=== PATIENT | female | born 1960 | race African-American/Black ===

== ENCOUNTER 2016-09-24 08:07 | Emergency (ER) | payer OTHER ==
[~2016-09-24] VITALS: Ht 165.1 cm; Wt 73.9 kg
[~2016-09-24 08:07] MED LIST: ACCURETIC 10-11 EACH PO; AMITRIPTYLINE H50 M2 PO; AMOXICILLIN; ASPIRIN EC325 M1 PO; BYSTOLIC10 MG PO; CATAPRES; CRESTOR10 MG PO; EFFIENT10 MG PO; FLAGYL500 MG PO; FLEXERIL PO; GLIPIZIDE 10 MG10 MG PO; GLIPIZIDE XL10 MG PO; GLUCOPHAGE1000 MG PO; JANUMET XR 50-1 EAC1 PO; LANTUS SUBQ; LISINOPRIL; LISINOPRIL-HCT1 EAC1 PO; NAPROSYN500 MG PO; NEURONTIN 300300 M1 PO; NEXIUM40 MG PO; NITROSTAT0.4 MG SL; NORCO 5-325 TA1 EACH PO; NORFLEX100 MG PO; NORVASC10 MG PO; PERCOCET 5-3251 EACH PO; PROZAC; TOPROL XL100 MG PO; VITAMIN D1000 UNI1 PO; ZANTAC 150MG T150 MG PO; ZOLOFT 50 MG TA50 M1 PO
[2016-09-24] MEDS ORDERED: NORCO 5-325 TA1 EACH PO (09:00)
[2016-09-24 09:10] VITALS: BP 142/88
== END 2016-09-24 09:11 | disposition home or self-care (01) ==
LOC: ER 08:07
DX: S16.1XXA Strain of muscle, fascia and tendon at neck level, initial encounter (principal); S70.01XA Contusion of right hip, initial encounter; S40.011A Contusion of right shoulder, initial encounter; M25.551 Pain in right hip; M25.511 Pain in right shoulder; E11.9 Type 2 diabetes mellitus without complications; I10 Essential (primary) hypertension; E78.00 Pure hypercholesterolemia, unspecified; Z95.9 Presence of cardiac and vascular implant and graft, unspecified; Z98.890 Other specified postprocedural states; V49.9XXA Car occupant (driver) (passenger) injured in unspecified traffic accident, initial encounter; Y93.9 Activity, unspecified; Y92.410 Unspecified street and highway as the place of occurrence of the external cause; Y99.9 Unspecified external cause status

== ENCOUNTER 2020-03-29 21:12 | Emergency (ER) | payer OTHER ==
[~2020-03-29] VITALS: Ht 165.1 cm; Wt 70.3 kg
[2020-03-29] MEDS ORDERED: ASA81BEC PO (21:20)
[2020-03-29] MEDS ORDERED: PROTONIX40 M2 PO (21:21)
[2020-03-29] MEDS ORDERED: COZAAR 25 MG TA25 M1 PO (21:22)
[2020-03-29] MEDS ORDERED: HYDROCHLOROTHIA25 M2 PO (21:23)
[2020-03-29] MEDS ORDERED: LIPITOR10 MG PO (21:25)
[2020-03-29 21:55] LABS: URINE BILIRUBIN NEGATIVE (Negative); URINE BLOOD NEGATIVE (Negative); URINE CLARITY CLEAR; URINE COLOR YELLOW; URINE GLUCOSE-RANDOM* NEGATIVE (Negative); URINE KETONES NEGATIVE (Negative); URINE LEUKOCYTES-REFLEX NEGATIVE (Negative); URINE NITRITE-REFLEX NEGATIVE (Negative); URINE PROTEIN (DIPSTICK) 1+ (Negative); URINE UROBILINOGEN >= 8.0 E.U./dl (0.2-1.0)
[2020-03-29 22:24] LABS: BACTERIA-REFLEX 1-9 Few /HPF (None Seen); CASTS None Seen /LPF (None Seen); CRYSTALS None Seen /LPF (None Seen); SQUAMOUS 4-10 Moderate /LPF (0-3); URINE RBC None Seen /HPF (0-2); URINE WBC-REFLEX 0-5 Rare /HPF (0-5); YEAST-REFLEX Present (None Seen)
[2020-03-29 23:57] LABS: ABSOLUTE NEUTROPHILS 13.7 thou/uL (1.4-8.2); BASOPHILS 0.6 % (0.0-2.0); EOSINOPHILS 1.6 % (0.0-3.0); HEMATOCRIT 37.1 % (37.0-47.0); HEMOGLOBIN 12.5 gm/dL (12.0-15.0); MCH 29.1 pg (26.0-34.0); MCHC 33.6 g/dL (28.0-37.0); MCV 86.5 fL (80.0-100.0); MONOCYTES 8.7 % (1.0-8.0); PLATELET COUNT 297 thou/uL (150-400); POLYS 75.1 % (36.0-66.0); RDW 14.4 % (10.5-14.5); WBC 18.3 thou/uL (4.0-11.0)
[2020-03-29 23:58] LABS: CALCIUM 9.8 mg/dL (8.5-10.1); CREATININE 1.5 mg/dL (0.6-1.0); POTASSIUM 3.3 mmol/L (3.5-5.1)
[2020-03-30 00:05] LABS: ALBUMIN 2.5 g/dL (3.4-5.0); TOTAL BILIRUBIN 1.8 mg/dL (0.2-1.0); TOTAL PROTEIN 8.3 g/dL (6.4-8.2)
[2020-03-30] MEDS ORDERED: ULTRAM 50MG TAB50 MG PO (01:53)
[2020-03-30 02:12] VITALS: BP 132/79
== END 2020-03-30 02:13 | disposition home or self-care (01) ==
LOC: ER 21:12
PROVIDERS: Emergency Medicine
DX: N63.20 Unspecified lump in the left breast, unspecified quadrant (principal); I10 Essential (primary) hypertension; E11.9 Type 2 diabetes mellitus without complications; E78.00 Pure hypercholesterolemia, unspecified; G43.909 Migraine, unspecified, not intractable, without status migrainosus; Z86.2 Personal history of diseases of the blood and blood-forming organs and certain disorders involving the immune mechanism; Z79.4 Long term (current) use of insulin; Z79.899 Other long term (current) drug therapy

== ENCOUNTER 2020-04-23 17:35 | Inpatient (IN) | payer OTHER ==
[~2020-04-23] VITALS: Ht 165.1 cm; Wt 97.7 kg
[2020-04-23 17:35] VITALS: BP 117/64
[~2020-04-23 17:35] MED LIST changes: +ASA81BEC PO; +COZAAR 25 MG TA25 M1 PO; +HYDROCHLOROTHIA25 M2 PO; +LIPITOR10 MG PO; +PROTONIX40 M2 PO; +ULTRAM 50MG TAB50 MG PO
[2020-04-23 18:47] LABS: HEMATOCRIT 23.8 % (37.0-47.0); HEMOGLOBIN 7.8 gm/dL (12.0-15.0); MCH 27.6 pg (26.0-34.0); MCHC 32.7 g/dL (28.0-37.0); MCV 84.3 fL (80.0-100.0); PLATELET COUNT 103 thou/uL (150-400); RBC 2.82 mil/uL (4.20-5.00); RDW 20.1 % (10.5-14.5); WBC 27.2 thou/uL (4.0-11.0)
[2020-04-23 19:01] LABS: ANION GAP 13 mmol/L (7-16); BUN 53 mg/dL (7-18); CALCIUM 8.7 mg/dL (8.5-10.1); CHLORIDE 108 mmol/L (98-107); CO2 21 mmol/L (21-32); CREATININE 1.8 mg/dL (0.6-1.0); GLUCOSE 181 mg/dL (74-106); POTASSIUM 3.7 mmol/L (3.5-5.1); SODIUM 142 mmol/L (136-145)
[2020-04-23 19:11] LABS: ALBUMIN 1.9 g/dL (3.4-5.0); SGOT 180 U/L (15-37); SGPT 44 U/L (30-65); TOTAL BILIRUBIN 6.6 mg/dL (0.2-1.0); TOTAL PROTEIN 6.3 g/dL (6.4-8.2); TROPONIN-I <0.06 ng/mL (<0.06)
[2020-04-23 20:52] LABS: ABSOLUTE NEUTROPHILS 21.8 thou/uL (1.4-8.2); METAMYELOCYTES 2 %; NUCLEATED RBCS 3 /100WBC
[2020-04-23 20:53] LABS: ANISOCYTOSIS 2+
[2020-04-23 21:06] LABS: INR 2.4; PROTIME 24.8 Seconds (9.3-11.4)
[2020-04-23 21:53] VITALS: BP 117/64
[2020-04-23 22:48] LABS: URINE BILIRUBIN 2+ (Negative); URINE BLOOD 3+ (Negative); URINE CLARITY SL CLOUDY; URINE COLOR YELLOW; URINE GLUCOSE-RANDOM* NEGATIVE (Negative); URINE KETONES TRACE (Negative); URINE LEUKOCYTES-REFLEX NEGATIVE (Negative); URINE NITRITE-REFLEX NEGATIVE (Negative); URINE PROTEIN (DIPSTICK) 2+ (Negative); URINE SPECIFIC GRAVITY 1.015 (1.005-1.035); URINE UROBILINOGEN 0.2 E.U./dl (0.2-1.0)
[2020-04-23 22:49] LABS: ICTOTEST (BILI CONFIRMATORY) Positive (Negative)
[2020-04-23 23:04] LABS: FINE GRANULAR CASTS 0-3 Few /LPF (None Seen); MUCUS 0-3 Light strn/LPF (None Seen); SQUAMOUS None Seen /LPF (0-3); URINE RBC 0-2 Rare /HPF (0-2); URINE WBC-REFLEX 0-5 Rare /HPF (0-5)
[2020-04-23 23:05] LABS: AMORPHOUS URATES Moderate /LPF (None Seen); BACTERIA-REFLEX 1-9 Few /HPF (None Seen); CRYSTALS None Seen /LPF (None Seen); YEAST-REFLEX Present (None Seen)
[2020-04-23 23:19] VITALS: BP 99/63
[2020-04-23 23:30] VITALS: BP 116/87
--- NOTE | 2020-04-24 01:46 | NUR ---
04/23/20 2330 PT TO FLOOR FROM ER FOLLOWING REPORT, BASELINE ADMISSION ASSESSMENT COMPLETED, WOUND TO LEFT BREAST FOUND, TO NIPPLE AREA, DRESSING REMOVED, WOUND CLEANSED WITH SALINE, PICTURE TAKEN, AND NEW DRESSING APPLIED PT STATES SHE HAD A BIOPSY DONE AT [place] 1 WEEK AGO. PT STATES SHE IS UNHAPPY WITH HER BED AND HER ROOM. RESP UNLABORED WITH WHEEZES TO BUL ON ASCULTATION. SCHUSTER CATH IN PLACE WITH ORANGE URINE, PT WITH YELLOW SCLERA BILAT AND EDEMA TO BOTTOM HALF OF BLE FROM THIGH TO ANKLE, WHICH PT STATES IS NEW TO HER. SCD'S IN PLACE AND FALL PRECAUTIONS IN PLACE
[2020-04-24 02:47] VITALS: BP 103/57
[2020-04-24 08:08] VITALS: BP 127/95
--- NOTE | 2020-04-24 10:48 | NUR ---
patient covid test resulted negative, paged dr. pearce to make aware. awaiting dr. pyle to round to make aware. for further orders
[2020-04-24 11:42] VITALS: BP 106/51
--- NOTE | 2020-04-24 11:59 | NUR ---
PATIENT COMPLAINING OF PAIN ALL OVER, PAGED DR. LITTLE FOR ORDERS FOR PAIN MEDS, AWAITING CALL BACK
--- NOTE | 2020-04-24 14:59 | NUR ---
ASSUMED PATIENT CARE THIS AM AT APPROXIMATELY 0700. PATIENT AWAKE AND ALERT, DISORIENTED TO TIME. ASSESSMENT/MEDS CHARTED. INTERMITTENT CONFUSION NOTED THROUGHOUT SHIFT. CALLED PATIENT SON DEQUAN TO UPDATE ON PATIENT CONDITION. ALL QUESTIONS ANSWERED AT THIS TIME. PATIENT HAS POOR APPETITE THIS SHIFT.
[2020-04-24 15:25] VITALS: BP 105/56
--- NOTE | 2020-04-24 15:38 | NUR ---
PATIENT REFUSING LABS X3 THIS SHIFT. SPOKE WITH PATIENT REGARDING GETTING LABS DRAWN THIS EVENING. IS AGREEABLE AT THIS TIME. LAB TO COME REDRAW
--- NOTE | 2020-04-24 15:44 | NUR ---
SPOKE WITH DR. CALDERON AT THIS TIME UPON ROUNDING. INFORMED OF NEGATIVE COVID RESULT, STATES TO OBTAIN ANOTHER COVID SWAB AND IF THAT ONE IS NEGATIVE CAN D/C ISOLATION.
[2020-04-24 17:03] LABS: INR 2.6; PROTIME 26.5 Seconds (9.3-11.4)
[2020-04-24 17:05] LABS: ALBUMIN 1.6 g/dL (3.4-5.0); DIRECT BILIRUBIN 5.2 mg/dL (<0.1-0.2); TOTAL BILIRUBIN 6.3 mg/dL (0.2-1.0); TOTAL PROTEIN 5.9 g/dL (6.4-8.2)
--- NOTE | 2020-04-24 19:29 | NUR ---
1900 ASSUMED CARE OF PT AFTER REPORT, 1914 BASELINE ASSESSMENT COMPLETED, PT IS INCREASINGLY SOA, NOW WITH TALKING. HR 120'S INCREASED FROM 110'S PREVIOS SHIFT. PT IS MORE CONFUSED AND IS ORIENTED ONLY TO PERSON AND PLACE, BUT IS AWAKE AND ALERT.OTHERWISE, URINE OUTPUT REMAINS ADEQUATE WILL MONITOR CLOSELY, PT IS EDEMETOUS ON THE DEPENDENT SIDE GENERALIZED.
[2020-04-24 19:32] VITALS: BP 111/58
[2020-04-25] VITALS (9 sets, daily range): BP systolic 101–124; BP diastolic 43–90
--- NOTE | 2020-04-25 08:08 | HC ---
[facility] [place] [address] CONSULTATION Name: GUERO GARLAND Room #: 355- ADM IN M.R.#: [id number] Admission: 04/23/20 Attend Phys: Artur Mcgovern MD Discharge: Date of : 64 Report #: [id number] THIS REPORT FOR: cc: EMMANUEL - No family physician/PCP EMMANUEL - No family physician/PCP Tray Santiago MD ~ CC: Artur Mcgovern MD [facility] physician/PCP [facility] Hematology-Oncology Cli HISTORY OF PRESENT ILLNESS: The patient is a 59-year-old female who was admitted yesterday to the hospital for mostly shortness of air. She had recently left earlier in the day from [facility] against medical advice. She gives about a 6-month history of a breast mass with nipple discharge, it would wax and wane. She had a CAT scan at [facility] in 03/2020 of the chest and abdomen that showed a large breast mass in the left, mediastinal and left axillary lymph nodes and innumerable liver masses. A biopsy on 04/06 showed metaplastic cancer, squamous predominance, triple negative with Ki-67 of 80%. Liver function was deteriorating rapidly and decided to start urgent chemotherapy. She received carboplatin and Taxol on a weekly basis beginning on 04/09. She reports that she thinks the mass was getting smaller and perhaps draining less. When she came in for second dose of chemotherapy at [facility] Hematology-Oncology clinic on 04/16, she was found to be tachycardic, hypotensive, febrile, hemoglobin was 6.3 and was neutropenic. She was admitted to the hospital and begun on broad-spectrum antibiotics. Blood cultures per the [facility] 04/23/2020 were negative growth to date, though urine culture did grow yeast and she was on nystatin or other antifungals. She also was thought to be encephalopathic ____ declined having an MRI once if not twice. It sounds like the patient become frustrated and wished to go seek care at another hospital, does left against medical advice. Today, the patient denies fevers, chills, nausea. She did have some queasiness earlier. She does have some discomfort in her bilateral upper thighs. She does have some discomfort and or or fullness type feeling. She does not really have pain. When asked about the left breast mass, she feels like it has been draining less and perhaps softer than it was prior to chemotherapy. 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 [facility] [address] [place] [address] CONSULTATION Name: GUERO GARLAND Room #: 355-P [place] IN M.R.#: [id number] Admission: 04/23/20 Attend Phys: Artur Mcgovern MD Discharge: Date of : 64 Report #: [id number] SOCIAL HISTORY: The patient had been working previous to admission. She is a nonsmoker, no alcohol. LABORATORY DATA: Lab review here shows a creatinine of 1.8, which is slightly higher than 1.6 at the outside hospital. AST of 180, little bit higher; lipase quite elevated at 4429; total bili 6.6, recently at [place] had been around 5.5 if I recall. Alkaline phosphatase 446, which is about the same elevation; ALT 44; albumin of 1.9. Ammonia level pending. Lactic acid was 2.6 earlier. INR here was 2.4, note that recently at outside hospital was 2.9. White count 27.2, outside hospital had been around 20,000, I believe; hemoglobin 6.8; platelets 103, they had been 110 there recently. Differential notable for 2 metamyelocytes. Note that she had 1 metamyelocyte at the outside hospital. UA positive for urate, yeast. MEDICATIONS: At this time include vancomycin 500 mg q. 12, lactulose 20 g daily, metronidazole IV push b.i.d., pantoprazole 40 mg daily, insulin on a sliding scale, Zosyn 3.375 grams IV q. 8, ipratropium and albuterol respiratory therapy, Zofran p.r.n. The patient I do not believe is currently on oxygen. PHYSICAL EXAMINATION: GENERAL: The patient appears her stated age. VITAL SIGNS: Height is 5 feet 5 inches, 152.4 cm, another place it is mentioned 165.1 cm. Weight appears to be either 156 pounds reported or currently measured 198 on measure. MOOD: The patient is alert and pleasant, though somewhat distracted in her thinking. NEUROLOGIC: Speech and thought pattern are mostly normal, though she is a little bit odd in her thinking and could be consistent with encephalopathy or anxiety or infection. LYMPH NODES: None definitely palpable in the neck, right axilla or groin. Maybe some lymph nodes in the left axilla. We will need to see what I think on further exams when the patient is more relaxed. BREASTS: Left breast does have dressing in place. There does appear to be some fullness. I examined through the bandage in place. ABDOMEN: Obese, maybe some slight organomegaly as far as the liver, though it is hard to tell. She is obese. EXTREMITIES: There does appear to be edema. Mild anasarca in both extremities including the thighs. SKIN: Appears to be intact. ASSESSMENT AND PLAN: 1. 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 By patient report, may have respond to first week of carboplatin and Taxol. If she recovers, we will have to decide whether to suggest retreatment with dose attenuation of the same agents or other therapy, which would be quite dangerous in this patient with liver dysfunction. Also could strongly consider palliative care with [facility] [address] [place] [address] CONSULTATION Name: GUERO GARLAND Room #: 355[facility] IN .R.#: [id number] Admission: 04/23/20 Attend Phys: Artur Mcgovern MD Discharge: Date of : 64 Report #: [id number] hospice. 2. Encephalopathy, elevated lactate. Worrisome for either widely metastatic cancer or perhaps a component of infection. Agree with cultures and antibiotics, which are in place. 3. Hypertension. Monitor. 4. Diabetes. Sliding scale insulin and meds per others. 5. Questionable history of cirrhosis. Ammonia level pending. 6. Anemia. Transfuse to keep hemoglobin above 7. 7. Mild thrombocytopenia 110. Continue monitoring. 8. Renal insufficiency, do suggest drugs. 9. Elevated lipase and liver functions. Defer to others. We will follow with you. <ELECTRONICALLY SIGNED> By: Tray Santiago MD 04/25/20807 5 Vineet Santiago MD /mohini
[2020-04-25 08:32] LABS: RBC 2.21 mil/uL (4.20-5.00)
[2020-04-25 08:34] LABS: MCH 27.9 pg (26.0-34.0); RDW 19.9 % (10.5-14.5); WBC 27.1 thou/uL (4.0-11.0)
[2020-04-25 08:43] LABS: CALCIUM 8.2 mg/dL (8.5-10.1); CREATININE 1.9 mg/dL (0.6-1.0); POTASSIUM 3.4 mmol/L (3.5-5.1)
[2020-04-25 09:08] LABS: HEMATOCRIT 19.3 % (37.0-47.0); HEMOGLOBIN 6.2 gm/dL (12.0-15.0)
--- NOTE | 2020-04-25 16:32 | NUR ---
Assumed patient care at 0715. Vital signs stable. Wheezes auscultated throughout all lung robins. Abdomen soft and non-tender, BS x's 4. Patient had nipple biopsy in left breast the other day; dressing has been changed x's 2 during this shift. It is actively bleeding. Hemoglobin 6.2, Hematocrit 19.[address] Hyman notified. Blood to be given today. Received Critical lab results of 21-Vancomycin; reported this to Dr Cristobal. Patient alert and oriented to self. She aks as though she is unable to move her upper and lower extremeties, is dependent on staff to do all cares. She is able to hold a cup of water and feed herself. She has refused both breakfast and lunch today. Sliding scale Insulin held due to this. Will continue to monitor this patient.
[2020-04-25 21:36] LABS: INR 3.1; PROTIME 31.5 Seconds (9.3-11.4)
[2020-04-25 21:59] LABS: APTT 117.9 Seconds (24.5-32.8)
[2020-04-26] VITALS (8 sets, daily range): BP systolic 109–132; BP diastolic 53–72
[2020-04-26 00:59] LABS: HEMOGLOBIN 6.9 gm/dL (12.0-15.0)
[2020-04-26 01:00] LABS: HEMATOCRIT 20.9 % (37.0-47.0)
[2020-04-26 03:06] LABS: GLYCOHEMOGLOBIN (HGB A1C) 8.6 % (4.8-5.6)
--- NOTE | 2020-04-26 06:35 | NUR ---
ASSUMED PATIENT CARE AT APPROXIMATELY 1930. PATIENT ARRIVED VIA CART FROM [facility] A TRANSFER. BLOOD TRANSFUSION INITIATED SHORTLY AFTER HER ARRIVAL. PATIENT IS BLEEDING PROFUSELY FROM HER BIOPSY SITE ON LEFT AREOLA WELL LAB STICK IN RIGHT ANTECUBITAL. TWO UNITS OF PRBC'S GIVEN WITHOUT INCIDENT. PATIENT IS ALERT TO SELF AND PLACE MOSTLY BUT HAS LABILE ORIENTATION AND MOOD. BREATHING STABLE EVIDENCED BY ASSESSMENTS AND SPOT OXYGENATION CHECKS. VITAMIN K GIVEN PER PROVIDER ORDER. BLOOD TINGED URINARY OUTPUT THROUGH SCHUSTER CATHETER. PATIENT IS NOT PROGRESSING IN CARE PLAN. POST TRANSFUSION H&H TO BE DRAWN SHORTLY WITH DETAILED REPORT TO ONCOMING NURSE.
[2020-04-26 08:04] LABS: HEMATOCRIT 24.5 % (37.0-47.0); HEMOGLOBIN 8.1 gm/dL (12.0-15.0)
--- NOTE | 2020-04-26 08:05 | EKG ---
[facility] [place] [address] [address] ELECTROCARDIOGRAM REPORT Name: GUERO GARLAND Room #: 203-P ADM IN M.R.#: [id number] Admission: 04/23/20 Attend Phys: Adonay Hyman MD Discharge: Date of : 64 Report #: [id number] THIS REPORT FOR: cc: FAM - No family physician/PCP FAM - No family physician/PCP Pelon Moody MD [facility] ~ THIS REPORT FOR: //name// [facility] ED Test Date: 2020-04-23 Test Time: 17:37:56 Pat Name: GUERO GARLAND Department: Room: [facility] Gender: F Chopper Gun Operator: JEFFREY : 1960 Requested By: Jennifer Tijerina Order Number: [id number] MD: Pelon Moody Measurements Intervals [place] Rate: 117 P: 81 MA: 134 QRS: 62 QRSD: 81 T: 16 QT: 341 QTc: 476 Interpretive Statements Sinus tachycardia Low voltage, extremity and precordial leads Borderline prolonged QT interval Baseline wander in lead(s) V3 Compared to ECG 11/27/2006 15:59:03 Low QRS voltage now present Sinus bradycardia no longer present Electronically Signed On 04-26-2020 8:05:14 CDT by Pelon Moody [email or web address] <ELECTRONICALLY SIGNED> By: Pelon Moody MD, [facility] 04/26/20804 1737 173 Pelon Moody MD, [facility] /EPI
--- NOTE | 2020-04-26 08:05 | NUR ---
REC REPORT ON PT AT SHIFT CHANGE, MUCH GOING ON W/PT. FFP ORDERED, MRI NOT DONE ORDERED DAY PRIOR, CALLED AND THEY WILL DO LATER THIS A.M., REPORTS OF FFP NEEDED AND ORDER PT AFTERWARDS, WILL ATTEND TO SOON ABLE CONSIDERING OTHER PT'S NEEDS WELL. REPORTS OF PROFUSE BLEEDING FROM BG CHECK SITES WELL L BREAST PREVIOUS BX SITE, WILL CONTINUE TO MONITOR. ENCOURAGED PT TO USE CALL LIGHT FOR ANY NEEDS. SEE SEPARATE INTERVENTIONS FOR ASSESSMENTS. WILL CONTINUE TO MONITOR CLOSELY
--- NOTE | 2020-04-26 08:06 | EKG ---
[facility] [address] [place] [address] ELECTROCARDIOGRAM REPORT Name: GUERO GARLAND Room #: 203-P ADM IN M.R.#: [id number] Admission: 04/23/20 Attend Phys: Adonay Hyman MD Discharge: Date of : 64 Report #: [id number] THIS REPORT FOR: cc: FAM - No family physician/PCP FAM - No family physician/PCP Pelon Moody MD [facility] ~ THIS REPORT FOR: //name// [facility] ED Test Date: 2020-04-23 Test Time: 18:19:26 Pat Name: GUERO GARLAND Department: Room: 203 Gender: F Boiler Technician: JEFFREY : 1960 Requested By: Dandre Love Order Number: [id number] MD: Pelon Moody Measurements Intervals [place] Rate: 116 P: 62 MA: 149 QRS: 53 QRSD: 80 T: 5 QT: 359 QTc: 499 Interpretive Statements Sinus tachycardia Low voltage, extremity leads Borderline prolonged QT interval Compared to ECG 04/23/2020 17:37:56 No significant changes Electronically Signed On 04-26-2020 8:06:46 CDT by Pelon Moody [email or web address] <ELECTRONICALLY SIGNED> By: Pelon Moody MD, [facility] 04/26/2006 1819 Pelon Moody MD, [facility] /EPI
[2020-04-26 08:18] LABS: INR 2.9; PROTIME 30.2 Seconds (9.3-11.4)
--- NOTE | 2020-04-26 14:24 | NUR ---
FFP: PHYSICIAN ORDERED ONE RUN OF FFP; MENTIONED WANTING FOUR TOTAL. STAFF UNABLE, INCL CHARGE, TO ORDER DESIRED BY LAB. CALLED PHYSICIAN FOR CLARIFICATION WELL TO PLEASE FINISH ORDERING REMAINING THREE UNITS. PICC LINE DONE, WILL ADM TO OTHER PTS AND FINISH FFP WHEN ORDERED APPROPRIATELY
--- NOTE | 2020-04-26 14:57 | NUR ---
VAT CONSULTED FOR A PICC FOR ANTIBIOTICS AND BLOOD PRODUCTS. A 4FRDBLPICC PLACED IN RUABASILIC. TIP AT THE [facility], PLEASE SEE INSERTION NOTES FOR DETAILS
--- NOTE | 2020-04-26 16:58 | NUR ---
Met with patient who reports she lives in independent home with her 2 brothers. [facility] Patient with hx of breast cancer stage 4 with metastatic process. She reports her brother takes her to/from chemo tx. She was using a walker at home. She reports bedroom up stairs and reports SOA with steps. She refused therapy today. She is rec plasma today. Reports her 2 brothers are supportive. 5 children in family. [facility] following for dc planning.
--- NOTE | 2020-04-26 19:10 | NUR ---
STAFF BROUGHT A MRSA POSITIVE FORM THEY FOUND ON PRINTER. ASKED [employer]FILL GAS TECHNICIAN TO CALL FOR ISOLATION CART. LANDFILL G[employer] TECHNICIAN LET ME KNOW SHE CALLED AND WAS TOLD ISO CARTS ARE ALL BEING USED. WILL LET NIGHT STAFF KNOW SO THEY MAYBE THEY CAN GET THE NEXT CART AVAILABLE FOR ISOLATION
[2020-04-27] VITALS (7 sets, daily range): BP systolic 105–141; BP diastolic 54–73
--- NOTE | 2020-04-27 03:17 | NUR ---
PATIENT ALERT,CONFUSED AT TIMES.LEFT BREAST BLEEDING.DRESSING INTACT AND REINFORCED.REPOSITIONED.SCHUSTER TO DD.MONITOR SHOWS SINUS TACHY.POC CONTINUED.
--- NOTE | 2020-04-27 07:45 | NUR ---
REC CARE OF PT AT SHIFT CHANGE, MORE ALERT, REPORTS OF UP ALL NIGHT, STATES REPEATEDLY SHE WANTS TO GO HOME. TRIED TO TEACH HER HOW TO USE CALL LIGHT ALL DAY YESTERDAY AND TODAY SHE SHOWS RETURN DEMO, REPEATEDLY. BLEEDING THROUGH BANDAGES THROUGH NIGHT, WILL NEED TO CHANGE PICC LINE DRESSING IT'S SATURATED. WILL CONVERSE W/PHYSICIANS ON CURRENT REQUESTS, AND CONTINUE TO MONITOR
[2020-04-27 10:46] LABS: PROTIME 13.6 Seconds (9.3-11.4)
[2020-04-27 11:24] LABS: INR 1.3
--- NOTE | 2020-04-27 13:57 | NUR ---
CRITICAL HGB NOTED AFTER DR. RUIZ POINTED OUT. NO LAB CALLS. WILL HANG BLOOD SAI. NURSE ENTERED HGB THIS A.M.
[2020-04-27 15:00] LABS: APTT 58.1 Seconds (24.5-32.8)
--- NOTE | 2020-04-27 15:03 | NUR ---
Patient at times yells out for "Peter" her brother at other moements more lucid. Sp with therapy who reports patient very limited, sat at side of bed and reports she wants to return home. Sp with son Rohan. He reports patient lives with other son in home. He reports in past month patient has been declining rapidly. He reprts prior month patient may stay in bed a couple of days but then would be up and around. He reports she may be in bed for days now and not eating or drinking. He reports he and brother help patient to car for Jad winkler. last oncology apt was when she was admitted to [facility]. She left AMA but cont with SOA and weakness then came to [facility]. Rohan works nights and travels from [place] to help brother and mother. He reports aware patient at this time needs 24/7 care. Discussed with son hopsice care, at home and facility. He plans to discuss with brother. Left brochures and list of hospice agencies in room. He plans to discuss with his family.
--- NOTE | 2020-04-27 15:59 | NUR ---
CONTACTED PHYSICIAN EARLIER FOR BLOOD TRANSFUSION FOR HGB 6.6 BLOOD ORDERED; NOT READY YET, LAB STATES THEY ARE VERY BEHIND; WILL CONTINUE TO MONITOR. SW STATES SHE'S SPOKEN TO ONE OF THE SONS RE: HOSPICE AND LEFT PAMPHLETS IN THE ROOM FOR FAMILY TO PERUSE AND SPEAK WITH THEIR MOTHER REGARDING LIFE/CODE STATUS, ETC
[2020-04-27 22:50] LABS: HEMATOCRIT 22.3 % (37.0-47.0); HEMOGLOBIN 7.6 gm/dL (12.0-15.0)
[2020-04-28 00:56] VITALS: BP 134/68; BP 143/63; BP 194/68
[2020-04-28 04:00] VITALS: BP 143/63
[2020-04-28 06:08] LABS: HEMATOCRIT 21.6 % (37.0-47.0); HEMOGLOBIN 7.1 gm/dL (12.0-15.0); MCH 28.7 pg (26.0-34.0); MCHC 32.8 g/dL (28.0-37.0); MCV 87.5 fL (80.0-100.0); RBC 2.46 mil/uL (4.20-5.00); RDW 17.4 % (10.5-14.5); WBC 24.8 thou/uL (4.0-11.0)
[2020-04-28 06:42] LABS: ALBUMIN 1.8 g/dL (3.4-5.0); CALCIUM 8.5 mg/dL (8.5-10.1); CREATININE 2.3 mg/dL (0.6-1.0); POTASSIUM 3.2 mmol/L (3.5-5.1); TOTAL BILIRUBIN 8.2 mg/dL (0.2-1.0); TOTAL PROTEIN 5.9 g/dL (6.4-8.2)
--- NOTE | 2020-04-28 07:06 | NUR ---
ASSUMED PATIENT CARE AT 1845. VITAL SIGNS STABLE WITH PATIENT HAVING NO COMPLAINTS OF PAIN OR NAUSEA. MOSTLY ORIENTED THROUGHOUT SHIFT, PATIENT DOES HAVE INTERMITTENT CONFUSION. PATIENT DID HAVE COMPLAINTS OF SHORTNESS OF AIR AND WAS PLACED ON NASAL CANNULA ON TWO LITERS TO GOOD EFFECT. PLASMA TRANSFUSIONS TIMES TWO GIVEN INCIDENT FREE. MINIMALLY ADEQUATE OUTPUT THROUGH SCHUSTER CATHETER WITH PATIENT INCONTINENT OF BOWEL. ONE LARGE BOWEL MOVEMENT WHICH WAS DARK AND TARRY NOTED. PATIENT REPOSITIONED WITH SKIN CARE PROVIDED. CONTINUE PLAN OF CARE.
--- NOTE | 2020-04-28 07:45 | NUR ---
ASSUMED CARE OF PT AT SHIFT CHANGE, ON ; WILL CONTINUE TO MONITOR THIS AREA, WATCHING LABS CLOSELY ABLE; DRAWING COAGS THIS A.M., IV ABX, MOANS, DELERIUM YET ALSO A&0X4, FORGETS EASILY WITHIN MINUTES THEN NEEDS REORIENTATION; STATES CONSTANTLY SHE JUST WANTS TO GO HOME. SEE SEPARATE INTERVENTIONS FOR ASSESSMENTS, BLOOD TINGED SCHUSTER CATH OUTPUT, PRESSURE HELD YESTERDAY HAS RENDERED HER LESS BLEEDING AT L BREAST SITE. ENCOURAGED HER TO USE CALL LIGHT FOR NEEDS AND SHE VACILLATES BACK AND FORTH BETWEEN YELLING AND USING CALL LIGHT. WILL HANG MAINTENANCE IVF WHEN AVAILABLE
[2020-04-28 07:58] VITALS: BP 113/67
[2020-04-28 08:40] LABS: APTT 64.6 Seconds (24.5-32.8); INR 1.3; PROTIME 13.8 Seconds (9.3-11.4)
[2020-04-28 11:14] VITALS: BP 118/62
--- NOTE | 2020-04-28 13:48 | NUR ---
USED PERSONAL CELL TO REACH DR MCKEON HIS OFFICE WILL NOT ACCEPT CALLS FROM 816 NO? LVM RE: FAMILY/PT AND FURTHER DISCUSSION OF HOSPICE. WILL TRANSFUSE ANOTHER UNIT OF BLOOD PER SURGEON AND HEMATOLOGY. UNABLE TO LEAVE VOICE MAIL WITH CELL PHONE USE EITHER. WILL COMM W/HOSPITALIST FOR HIM TO PURSUE
[2020-04-28 15:21] LABS: HEMATOCRIT 22.3 % (37.0-47.0); HEMOGLOBIN 7.5 gm/dL (12.0-15.0); MCH 29.3 pg (26.0-34.0); MCHC 33.7 g/dL (28.0-37.0); MCV 86.8 fL (80.0-100.0); PLATELET COUNT 122 thou/uL (150-400); RBC 2.57 mil/uL (4.20-5.00); RDW 17.6 % (10.5-14.5); WBC 27.7 thou/uL (4.0-11.0)
[2020-04-28 15:33] VITALS: BP 133/73
[2020-04-28 16:21] LABS: ABSOLUTE NEUTROPHILS 21.9 thou/uL (1.4-8.2); METAMYELOCYTES 1 %; PLATELET ESTIMATE NORMAL
--- NOTE | 2020-04-28 16:48 | NUR ---
Gave son hospice information yesterday. Discussed with son hospice does not provide 24/7 care. Son reports he is aware. Discussed their services. offered to arrange info visit but son overwhelmed and has not spoken with all of fanily at this time. He plans to call [facility]et in am.
[2020-04-28 19:30] VITALS: BP 127/69
[2020-04-29 03:45] VITALS: BP 132/83
--- NOTE | 2020-04-29 04:23 | NUR ---
PT IS ALERT AND ORIENTED X3. CONFUSED ON YEAR. LUNGS CLEAR TO DIMINISHED. PAIN MEDS GIVEN FOR RIGHT LEG PAIN RATES IT A 7. AND TRAZADONE GIVEN PT SLEEPING NOW AFTER INTERVENTION. SCD TO LEFT LEG. MOISTEN LIPS AND MOUTH APPEAR TO BE DRY. LEFT NIPPLE HAS THE SKIN OFF AND IS REDENED. LEFT DRESSSING ON IN PLACE. PT IS PLEASANT REPORTS HER MOM TOO HAD CANCER. 3 PLUS GENERALIZED EDMA NOTED MAKING IT HARD FOR HER MOVE. ABDOMEN IS FIRM BOWEL SOUNDS HYPOACTIVE. CALLL LIGHT WITHIN REACH IF NEEDS ANY ASSISTANCE FROM STAFF AT THIS TIME. SCHUSTER TO DD WITH JENNIFER COLORED URINE PRESENT. EYES ARE JANDICE NOTED IN COLOR. PT HAS A HISTORY OF ETOH USE.
[2020-04-29 06:12] LABS: INR 1.3
[2020-04-29 06:17] LABS: HEMATOCRIT 21.9 % (37.0-47.0); HEMOGLOBIN 7.4 gm/dL (12.0-15.0); MCH 29.7 pg (26.0-34.0); MCHC 33.7 g/dL (28.0-37.0); MCV 88.2 fL (80.0-100.0); RBC 2.49 mil/uL (4.20-5.00); RDW 18.7 % (10.5-14.5)
[2020-04-29 07:58] VITALS: BP 106/64
[2020-04-29 08:00] VITALS: BP 106/68
--- NOTE | 2020-04-29 09:15 | NUR ---
PT. JAUNDICED EYES CONTINUES. DENIES LEG PAIN NOR ANY NIPPLE PAIN A THIS TIME, NOT MEICATION NEEDED. MOVED HER TO [facility] EMERGENCY DEPARTMENT WITH TECH TO THE LEFT. WILL F/U WITH MORE TEACHING ABOUT FUTURE CARE FACILITY AND HOSPICE WITH FAMILY CALL.
--- NOTE | 2020-04-29 09:19 | HC ---
[facility] [place] [address] [place] [address] CONSULTATION Name: GUERO GARLAND Room #: 203-P ADM IN M.R.#: [id number] Admission: 04/23/20 Attend Phys: Adonay Hyman MD Discharge: Date of : 64 Report #: [id number] THIS REPORT FOR: cc: EMMANUEL - No family physician/PCP EMMANUEL - No family physician/PCP Shorty Spencer MD ~ CC: [facility] physician/PCP Adonay Hyman DATE OF SERVICE: 04/26/2020 CHIEF COMPLAINT: Bleeding from left breast area. HISTORY OF PRESENT ILLNESS: This is a 59-year-old female patient with metastatic breast cancer. She has been hospitalized, has had altered mental status, was noted to have bloody drainage or indira bleeding from the left nipple area. I have been asked to see her with regard to wound care. The patient is very confused, is not able to provide any information or history about herself. The patient's past medical history is positive for history of metastatic breast cancer and known cancer involving the left breast. She underwent a biopsy of the left axillary lymph nodes that showed metastatic breast cancer with squamous predominance described as triple negative with KI-67 of 80%. CT of the abdomen and pelvis at [facility] recently showed a large left breast mass, mediastinal left axillary lymphadenopathy and liver involvement. ALLERGIES: No known drug allergies. PAST MEDICAL HISTORY: Review of her medical records includes metastatic breast cancer, diabetes, hypertension, high cholesterol, neuropathy, previous cholecystectomy, anemia, possible metastatic disease to the liver. SOCIAL HISTORY: Negative for known alcohol or tobacco use. MEDICATIONS: Listed include Norvasc, Janumet, Nitrostat, Topral XL, Lantus, amitriptyline, aspirin, Protonix, Cozaar, hydrochlorothiazide, Lipitor. REVIEW OF SYSTEMS: Unobtainable. FAMILY HISTORY: Unknown. PHYSICAL EXAMINATION: VITAL SIGNS: At this time include temperature 36.6, pulse 100, respiratory rate 19, blood pressure 132/71. GENERAL: This is a chronically ill-appearing female patient who was nearly obtunded. HEENT: Head normocephalic. [facility] [address] [place] [address] CONSULTATION Name: GUERO GARLAND Room #: 203-P ADM IN .R.#: [id number] Admission: 04/23/20 Attend Phys: Adonay Hyman MD Discharge: Date of : 64 Report #: [id number] NECK: Supple. LUNGS: Diminished. HEART: Regular rhythm. ABDOMEN: Soft, nontender. There is moderate bleeding from the nipple of the left breast. The dressing that is in place is loosely applied and is saturated. EXTREMITIES: Without clubbing, cyanosis or edema. NEUROLOGIC: The patient is slow to answer questions, appears to move symmetrically. LABORATORY DATA: Includes hemoglobin of 8.1 on 04/26/2020 at 0715 hours and on 04/26/2020 at 0050 hours it was 6.9. White blood cell count is 27,000. Sodium 145, potassium 3.4, chloride 111, CO2 of 18, BUN 56, creatinine 1.9, glucose 183. INR is 3.1. CLINICAL IMPRESSION: 1. Bleeding from left nipple related to metastatic breast cancer. 2. Hepatic dysfunction with elevated INR. 3. Encephalopathy with no evidence of brain metastases on MRI. 4. Coronary artery disease by history. 5. Chronic kidney disease. 6. Hypertension. 7. Type 2 diabetes mellitus. 8. Generalized debility. 9. Severe protein-calorie malnutrition with albumin of 1.6. RECOMMENDATIONS: At this point in time, we will recommend topical Xeroform gauze, ABD and a pressure dressing using elastic tape. I suspect that this is related to tumor progression and erosion. We will need to correct her INR. She is receiving fresh frozen plasma being followed by Hematology. With regard to her medical illnesses including diabetes, hypertension, coronary artery disease, she is being managed by the hospitalist. She will need ongoing nutritional support. I appreciate being asked to see her in consultation. <ELECTRONICALLY SIGNED> By: Shorty Spencer MD 04/29/20 0919 [id number] Shorty Spencer MD /nt
--- NOTE | 2020-04-29 09:55 | NUR ---
VITAL SIGNS POST FFP TRANSFUSION 04/26/20 ALL WNL FOR PT
--- NOTE | 2020-04-29 10:23 | NUR ---
WOUND CONSULT; THIS IS A DELIGHTFUL WOMAN. SHE HAS BILATERAL BUTTOCKS FRICTION INJURY ONLY INVOLVING THE EPIDERMIS. NO S/S OF INFECTION. THE PATIENT CAN TURN HERSELF. THE WOUND BED IS PINK. NO DRAINAGE SEEN. RECOMMENDATIONS; 1-LOW AIR LOSS PUMP 2-ENCOURAGE PATIENT TO TURN 3-ZGUARD,COVER WITH A SMALL SACRAL FOAM M/W/F PRN DISCUSSED WITH NIKKI
--- NOTE | 2020-04-29 10:40 | NUR ---
WOUND CARE; DRSHemal LOOSE, ASSESSED WOUND L BREAST W/ ALFALFA DEHYDRATOR OPERATOR JUAN, SCANT DRAINAGE BRIGHT RED BLOOD, PERIWOUND AREA INTACT, CONFUSED BUT COOPERATIVE, SEE PROCESS INTERVENTION FOR WOUND DETAILS RECOMMENDATIONS; CONT WOUND CARE PER ORDERS DR GRUBER AND SURGEON ALFALFA DEHYDRATOR OPERATOR AWARE
--- NOTE | 2020-04-29 10:49 | NUR ---
SON AT BEDSIDE WORKING WITH HIS MOM TO EAT AND DRINK MORE RIGHT NOW. THEY ARE WANTING TO HOME HOSPICE CARE AT THEIR HOUSE COMING IN FOR VISITS. I WILL CALL CHILD MONITOR TO SEE IF THEY CAN COME SPEAK WITH HIM ABOUT FURTHER DISCHARGE PLANNING TODAY RIGHT NOW. MEDICATED PAIN ON LEFT NIPPLE PER HER REPORT WITH [facility] FOR SUCH CASTANO=6-7. WOUND CARE CHANGED OUT NIPPLE DRESSING AT THIS TIME WELL, NO NEW BLOOD OBSERVED AND NO PRESSURE DRESSING REQUIRED.
[2020-04-29 11:38] VITALS: BP 106/60
--- NOTE | 2020-04-29 11:47 | NUR ---
spoke with son Rohan at bedside. Discussed hospice services at home with phys present. Son interested in [facility] [phone]. Sent referral to them for review and sp with Yue. Goal to dc home with hospice care for patient.
--- NOTE | 2020-04-29 15:01 | NUR ---
PT. GETS VERY CONFUSED SOMETIMES AND CALLS OUT FOR HER BROTHER AND THEN REQUIRES REORIENTATION TO UNIT AND WHERE SHE IS. DENIES PAIN AT PRESENT, SLEEPY AND APPEARS IN NO DISTRESS.
[2020-04-29 15:38] VITALS: BP 108/71
--- NOTE | 2020-04-29 16:35 | NUR ---
spoke with son who has spoken with [facility]. They are delivering equiptment in am. Son signed outside DNR form with plan for dc in am.
[2020-04-29 20:10] VITALS: BP 111/80
[2020-04-30 03:17] VITALS: BP 121/59
--- NOTE | 2020-04-30 06:13 | NUR ---
PT COMPAAINS OF APIN AND MOANS UP PAIN MEDS GIVEN TO PT PER DR. MCKEON ORDERED PAIN MEDS AND . SLPEEPING AFTER MED S GIVEN WILL COTNINUE TO ASSESS AND MONITO NURISNG SD CARE PLAN NEEDED. NO ISSUES OR CERNS NOTED AT [facility]-
[2020-04-30 07:25] VITALS: BP 101/53
--- NOTE | 2020-04-30 11:04 | NUR ---
CRIES OUT RANDOMLY QUITE LOUDLY. MEDICATED FOR PAIN ALLOWED. SR PER TELE. FALL PRECAUTIONS IN PLACE. CLOSE TO NURSES' STATION. HOME WITH HOSPICE TODAY. WILL CONTINUE TO FOLLOW CLOSELY.
--- NOTE | 2020-04-30 14:06 | NUR ---
Nutrition: pt due for LOS. Admit with metastatic Breast CA. Palliative care following. Noted plans to Discharge with hospice likely today. RD deferring assessment.
[2020-04-30 14:45] VITALS: BP 101/53
[2020-04-30 15:24] VITALS: BP 101/53
--- NOTE | 2020-04-30 15:29 | NUR ---
COMPUTER IN ROOM WILL NOT WORK FOR MEDS. REPAIR REQUESTED. THUS, FIRST DOSE OF ROXANOL AT 0830 NOT RECORDED. SHE IS DISCHARGING TO HOSPICE AT 1700.
[2020-04-30] MEDS ORDERED: HYDROCODON-ACE1 EAC7 PO (15:38)
[2020-04-30] MEDS ORDERED: MIRALAX119 GM PO (15:38)
--- NOTE | 2020-04-30 17:10 | NUR ---
[facility] delivered equipt today. Sp with son arranged [facility] time for 1700 at sons request. Faxed orders and script to hospice. Verified address. Alerted to hospice and son time of transport no further needs.
== END 2020-04-30 19:30 | disposition hospice, home (50) | DRG 871 ==
LOC: ER 17:35 → EROBS 21:03 → 2N 21:03 → 3W 23:17 → 2N 04-25 19:13
PROVIDERS: Emergency Medicine; Internal Medicine Hematology & Oncology; Nurse Practitioner Family; Physician Assistant; ADMIT Internal Medicine; ATTEND Internal Medicine
DX: A41.9 Sepsis, unspecified organism (principal); J18.9 Pneumonia, unspecified organism; E43 Unspecified severe protein-calorie malnutrition; K85.90 Acute pancreatitis without necrosis or infection, unspecified; N17.9 Acute kidney failure, unspecified; G93.40 Encephalopathy, unspecified; C78.7 Secondary malignant neoplasm of liver and intrahepatic bile duct; C79.89 Secondary malignant neoplasm of other specified sites; D68.9 Coagulation defect, unspecified; C50.912 Malignant neoplasm of unspecified site of left female breast; Z20.828 Contact with and (suspected) exposure to other viral communicable diseases; E78.00 Pure hypercholesterolemia, unspecified; E11.40 Type 2 diabetes mellitus with diabetic neuropathy, unspecified; G43.909 Migraine, unspecified, not intractable, without status migrainosus; M06.9 Rheumatoid arthritis, unspecified; E78.5 Hyperlipidemia, unspecified; K74.60 Unspecified cirrhosis of liver; D64.9 Anemia, unspecified; D69.6 Thrombocytopenia, unspecified; N64.59 Other signs and symptoms in breast; K76.89 Other specified diseases of liver; E11.22 Type 2 diabetes mellitus with diabetic chronic kidney disease; I12.9 Hypertensive chronic kidney disease with stage 1 through stage 4 chronic kidney disease, or unspecified chronic kidney disease; I25.10 Atherosclerotic heart disease of native coronary artery without angina pectoris; N18.9 Chronic kidney disease, unspecified; G47.00 Insomnia, unspecified; G47.33 Obstructive sleep apnea (adult) (pediatric); R74.0 Nonspecific elevation of levels of transaminase and lactic acid dehydrogenase [LDH]; R91.1 Solitary pulmonary nodule; R65.20 Severe sepsis without septic shock; Z51.5 Encounter for palliative care; Z95.5 Presence of coronary angioplasty implant and graft; Z79.82 Long term (current) use of aspirin; Z79.899 Other long term (current) drug therapy
CPT/HCPCS: 10081; 10879; 27000